=== PATIENT | female | born 1990 | race Caucasian/White ===

== ENCOUNTER 2016-10-11 13:19 | Emergency (ER) | payer BC, MEDICAID, OTHER ==
[~2016-10-11] VITALS: Ht 165.1 cm; Wt 68.0 kg
[2016-10-11 14:31] VITALS: BP 132/84; PULSE 80; RESP 15; TEMP 98.1; O2SAT 96
[2016-10-11] MEDS ORDERED: SODIUM CHLORIDE 0.9% FLUSH 5 ML FLUSH IVF PRN (15:15)
--- NOTE | 2016-10-11 15:22 | PD ---
HPI Chief Complaint: Complaint Time Seen by Provider: 15:17 Travel History International Travel<30 days: No Contact w/Intl Traveler<30days: No Traveled to known affect area: No History of Present Illness HPI 25-year-old female presents to the emergency Department with complaint of dysuria, urinary frequency, urinary urgency, urinary hesitancy, and hematuria 4 days. Reports suprapubic pain that radiates up to her lower abdomen. Her lower abdomen is tender but not as painful is right over her bladder. Reports low back pain that is worse on the right. Denies change in stool. Denies history of kidney stones or diverticulitis. Reports fever for 102.0 yesterday and took ibuprofen with fever reduction. Denies fever today. Reports nausea without vomiting. Denies vaginal discharge, odor, itch, lesions. Has tried Pyridium and Cystex with no improvement in symptoms. Has an IUD for contraception. Her last mental. With approximately 2 weeks ago. Is here visiting from [place] and her primary care provider is in [place]. Denies allergies. Denies significant past medical history. No other modifying factors or associated signs and symptoms. PFSH Past Medical History Medical History: Denies Significant Hx ?: Not LMP: SEP 24 Social History Tobacco Use: No Allergies-Medications (Allergen,Severity, Reaction): Coded Allergies: No Known Allergies (Unverified , 10/11/16) Reported Meds & Prescriptions Reported Meds & Active Scripts Active No Active Prescriptions or Reported Medications Review of Systems Except as stated in HPI: all other systems reviewed are Neg Physical Exam Narrative GENERAL: Well-nourished, well-developed female patient, in no acute distress; afebrile SKIN: Warm and dry. No rash. HEAD: Atraumatic. Normocephalic. EYES: Pupils equal and round. No scleral icterus. No injection or drainage. ENT: Mucosa pink and moist. NECK: Trachea midline. CARDIOVASCULAR: Regular rate and rhythm. No murmur appreciated. RESPIRATORY: No accessory muscle use. Clear to auscultation. Breath sounds equal bilaterally. GASTROINTESTINAL: Abdomen soft, bilateral lower abdominal tenderness on palpation, nondistended. Hepatic and splenic margins not palpable. Bowel sounds are active 4 quadrants. Suprapubic tenderness on palpation; bladder nondistended. MUSCULOSKELETAL: No obvious deformities. No clubbing. No cyanosis. No edema. BACK: Right CVA tenderness NEUROLOGICAL: Awake and alert. Oriented 3. No obvious cranial nerve deficits. Motor grossly within normal limits. Normal speech. Moves all extremities. 5/5 strength to all extremities. PSYCHIATRIC: Appropriate mood and affect; insight and judgment normal. Data Data Last Documented VS Vital Signs Date Time Temp Pulse Resp B/P Pulse Ox O2 Delivery O2 Flow Rate FiO2 10/11/16 18:48 77 16 127/74 99 10/11/16 14:31 98.1 Orders Basic Metabolic Panel (Bmp) (10/11/16 15:13) Complete Blood Count With Diff (10/11/16 15:13) Lactic Acid (10/11/16 15:13) Urinalysis - C+S If Indicated (10/11/16 15:13) Iv Access Insert/Monitor (10/11/16 15:13) Sodium Chlor 0.9% 1000 Ml Inj (Ns 1000 M (10/11/16 15:13) Sodium Chloride 0.9% Flush (Ns Flush) (10/11/16 15:15) Ed Urine Pregnancytest Poc (10/11/16 15:13) Ketorolac Inj (Toradol Inj) (10/11/16 16:00) Gc And Chlamydia Pcr (10/11/16 16:26) Wet Prep Profile (10/11/16 16:26) Ct Abd/Pel W/O Iv Contrast (10/11/16 ) Labs Laboratory Tests Test 10/11/16 10/11/16 10/11/16 15:00 15:20 16:45 Urine Color DARK-YELLOW Urine Turbidity CLEAR Urine pH 6.5 Urine Specific [place] 1.006 Urine Protein NEG mg/dL Urine Glucose (UA) NEG mg/dL Urine Ketones NEG mg/dL Urine Occult Blood NEG Urine Nitrite NEG Urine Bilirubin NEG Urine Urobilinogen LESS THAN 2.0 MG/DL Urine Leukocyte Esterase NEG Urine WBC 2 /hpf Urine Squamous Epithelial 1 /hpf Cells Urine Renal Epithelial Cells <1 /hpf Microscopic Urinalysis Comment CULT NOT INDICATED White Blood Count 8.8 TH/MM3 Red Blood Count 4.97 MIL/MM3 Hemoglobin 12.9 GM/DL Hematocrit 38.8 % Mean Corpuscular Volume 78.2 FL Mean Corpuscular Hemoglobin 26.0 PG Mean Corpuscular Hemoglobin 33.2 % Concent Red Cell Distribution Width 14.8 % Platelet Count 306 TH/MM3 Mean Platelet Volume 8.6 FL Neutrophils (%) (Auto) 67.0 % Lymphocytes (%) (Auto) 22.8 % Monocytes (%) (Auto) 8.6 % Eosinophils (%) (Auto) 1.1 % Basophils (%) (Auto) 0.5 % Neutrophils # (Auto) 5.9 TH/MM3 Lymphocytes # (Auto) 2.0 TH/MM3 Monocytes # (Auto) 0.8 TH/MM3 Eosinophils # (Auto) 0.1 TH/MM3 Basophils # (Auto) 0.0 TH/MM3 CBC Comment DIFF FINAL Differential Comment Sodium Level 140 MEQ/L Potassium Level 4.0 MEQ/L Chloride Level 104 MEQ/L Carbon Dioxide Level 29.4 MEQ/L Anion Gap 7 MEQ/L Blood Urea Nitrogen 8 MG/DL Creatinine 0.76 MG/DL Estimat Glomerular Filtration 93 ML/MIN Rate Random Glucose 95 MG/DL Lactic Acid Level 0.9 mmol/L Calcium Level 8.8 MG/DL Clue Cells (Wet Prep) NONE SEEN Vaginal Trichomonas (Wet Prep) NONE SEEN Vaginal Yeast (Wet Prep) NONE SEEN MDM Medical Decision Making Medical Screen Exam Complete: Yes Emergency Medical Condition: Yes Medical Record Reviewed: Yes Differential Diagnosis Cystitis, urinary tract infection, pyelonephritis, kidney stones, sepsis Narrative Course 25-year-old female with urinary symptoms 4 days. Afebrile in the ER. Reports MAXIMUM TEMPERATURE of 102.0 yesterday. Denies fever today. Denies vaginal symptoms. Has IUD. Urine is negative. Vital signs are stable. IV site obtained. CBC, BMP, lactic acid, normal saline bolus, urinalysis ordered. 1609: CBC unremarkable. 1621: CBC unremarkable. Lactic acid 0.9. Urinalysis with no signs of infection. 1700: CT abdomen/pelvis ordered. Pelvic exam is unremarkable. I do not suspect chlamydia/gonorrhea and will not treat the patient empirically. 1733: Wet prep Negative for clue cells, vaginal Trichomonas, vaginal yeast. Chlamydia and gonorrhea pending. 1818: CT abdomen/pelvis concludes No acute findings. Specifically no bladder or renal calculi. Intrauterine device present which appears to be in satisfactory position. Mild constipation. 1830: I discussed the patient with Dr. Donahue and he agrees the patient is stable for discharge. The patient is requesting at about, she is down here on vacation and does not want to have to return to the hospital if symptoms persist. Cipro, Pyridium, ibuprofen prescribed for home. Patient is medically cleared and stable for discharge. Discussed reasons to return to the emergency department. Instructed patient to follow up with primary care provider. Patient agrees with treatment plan. The patients vital signs are stable and the patient is stable for outpatient follow-up and treatment. Patient discharged home, stable and in no acute distress. Diagnosis Primary Impression: Cystitis Additional Impression: Abdominal pain Qualified Code: R10.30 - Lower abdominal pain Referrals: Primary Care Physician Patient Instructions: Abdominal Pain (ED), Dysuria (ED), General Instructions Additional Instructions: Take antibiotics as prescribed and complete full course Take Pyridium for bladder spasms: Pyridium will turn your urine bright orange Drink plenty of fluids Maintain good personal hygiene Follow-up with primary care provider Return to the emergency department immediately with worsening of symptoms Med/Other Pt SpecificInfo: Prescription(s) given Scripts Ciprofloxacin (Cipro)500 Mg Str292 Mg PO BID 10 Days Ref 0 Prov:Renetta Stoll 10/11/16 Ibuprofen 800 Mg Ite506 Mg PO Q6HR PRN (PAIN) #30 TAB Ref 0 Prov:Renetta StollP 10/11/16 Phenazopyridine (Pyridium)200 Mg Bfr381 Mg PO Q8H PRN (DYSURIA) #30 TAB Ref 0 Prov:Renetta Stoll 10/11/16 Disposition: 01 DISCHARGE HOME Condition: Stable Renetta Stoll Oct 11, 2016 15:22
[2016-10-11] MEDS: SODIUM CHLOR 0.9% 1000 ML INJ 1,000 ML IV SCH ×2 (15:48→15:54)
[2016-10-11] MEDS ORDERED: KETOROLAC TROMETHAMINE 30 MG/ML (IVP) VIAL IV PUSH ONE (16:00)
[2016-10-11 16:04] LABS: AUTOMATED NEUTROPHIL # 5.9 TH/MM3 (1.8-7.7); BASOPHIL % 0.5 % (0.0-2.0); EOSINOPHIL # 0.1 TH/MM3 (0-0.4); EOSINOPHIL % 1.1 % (0.0-4.0); HEMATOCRIT 38.8 % (35.0-46.0); HEMO FLAGS DIFF FINAL; LYMPH % 22.8 % (9.0-44.0); MEAN CELL VOLUME 78.2 FL (80.0-100.0); MEAN CORPUSCULAR HGB CONC 33.2 % (32.0-36.0); MONO % 8.6 % (0.0-8.0); PLATELET COUNT 306 TH/MM3 (150-450); RED BLOOD COUNT 4.97 MIL/MM3 (4.00-5.30); RED CELL DISTRIBUTION WIDTH 14.8 % (11.6-17.2); WHITE BLOOD COUNT 8.8 TH/MM3 (4.0-11.0)
[2016-10-11 16:06] LABS: BLOOD, URINE NEG (NEG); COMMENT (UR) CULT NOT INDICATED; CULTURE IF INDICATED CULT NOT INDICATED; GLUCOSE,URINE NEG (NEG); KETONE, URINE NEG (NEG); NITRITE,URINE NEG (NEG); PH, URINE 6.5 (5.0-8.5); RENAL EPITHELIAL CELLS <1 /hpf; SQUAMOUS EPITHELIAL CELL URINE 1 /hpf (0-5); URINE COLOR DARK-YELLOW (YELLW/STRAW)
[2016-10-11 16:19] LABS: BICARBONATE 29.4 MEQ/L (21.0-32.0)
--- NOTE | 2016-10-11 18:13 | RADRPT ---
EXAM DATE/TIME: 10/11/2016 18:01 [facility] COMPARISON: No previous studies available for comparison. INDICATIONS : Suprapubic pain radiating to lower abdomen. ORAL CONTRAST: No oral contrast ingested. RADIATION DOSE: 7.32 CTDIvol (mGy) MEDICAL HISTORY : None SURGICAL HISTORY : None. ENCOUNTER: Initial ACUITY: 2 days PAIN SCALE: 5/10 LOCATION: lower quadrant TECHNIQUE: Volumetric scanning of the abdomen and pelvis was performed. Using automated exposure control and ad justment of the mA and/or kV according to patient size, radiation dose was kept as low as reasonably achievable to obtain optimal diagnostic quality images. FINDINGS: Lung bases are clear. No acute findings identified in the liver, spleen, adrenals, kidneys or pancrea s. There is no free fluid. No bowel obstruction. No adenopathy. Intrauterine device is present. No acute bony abnormalities. CONCLUSION: 1. No acute findings. Specifically no bladder or renal calculi. Intrauterine device present which bryant ears to be in satisfactory position. Mild constipation. Harris Robb MD on October 11, 2016 at 18:09 Board Certified Radiologist. This report was verified electronically.
[2016-10-11 18:48] VITALS: BP 127/74
[2016-10-11] MEDS ORDERED: CIPR-9 PO (18:52)
[2016-10-11] MEDS ORDERED: PYRI200T4 PO (18:52)
[2016-10-11] MEDS ORDERED: IBUP800T23 PO (18:52)
[2016-10-11 18:57] LABS: CHLAMYDIA PCR NOT DETECTED (NOT DETECT); NEISSERIA PCR NOT DETECTED (NOT DETECT)
== END 2016-10-11 18:59 | disposition home or self-care (01) ==
LOC: NEPB 13:19
DX: N30.90 Cystitis, unspecified without hematuria (principal)
CPT/HCPCS: 74176; 80048; 81001; 83605; 84703; 85025; 87210; 87491; 87591; 96361; 96374; 99285; J1885; J7030